=== PATIENT | female | born 1940 | race Caucasian/White ===

== ENCOUNTER 2023-12-10 11:06 | Emergency (ER) | payer OTHER, SELFPAY ==
[2023-12-10 11:16] VITALS: BP 141/81
[2023-12-10] MEDS: NSS 500 IV (12:08)
[2023-12-10 12:10] VITALS: BMI 30.1
[2023-12-10 12:42] LABS: % Basophils 0.1 % (0-2); % Eosinophils 0.1 % (0-6); % Immature Granulocytes 0.3 % (0-0.5); % Lymphocytes 8.3 % (20.5-51.1); % Monocytes 5.3 % (1.7-9.3); % Neutrophils 85.9 % (42.2-75.2); Absolute Monocytes 0.6 10^3/uL (0.1-0.6); Absolute Neutrophils 10.2 10^3/uL (1.4-6.5); Hematocrit 38.6 % (37.0-47.0); Hemoglobin 13.4 g/dL (12.0-16.0); Mean Corp Hgb Conc. 34.7 g/dL (33.0-37.0); Mean Corpuscular Hgb 30.2 pg (27.0-31.0); Mean Corpuscular Volume 86.9 fL (81.0-99.0); Mean Platelet Volume 11.3 fL (7.4-10.4); Nucleated Red Blood Cells % 0 %; Platelet Count 280 10^3/uL (130-400); Red Blood Cell Count 4.44 10^6/uL (4.20-5.40); Red Cell Dist. Width 12.5 % (11.5-14.5); White Blood Cell Count 11.8 10^3/uL (4.8-10.8)
--- NOTE | 2023-12-10 12:47 | ED.GENMED ---
History of Present Illness
General
Chief Complaint: Fainting/Passed Out
Source: patient
Exam Limitations: none
Time Seen by Provider: 12/10/23 11:47
Nursing documentation reviewed up to this point in time: agreed with
History of Present Illness
History of Present Illness:
pt is a 83 y/o F with h/o PAF on xarelto, htn, hld,
s/p multiple ablations
intolerant to cardizem/amio
so she is on tikosyn since last year
syas that she has been under a lot of stress recently, her was hospitalized and now is home and she is primary resident care manager
she got some n/v last week that resovled after 1 day but doesn't think she has slept well and she hasn't been hydrated
and this morning 3 am she had syncope event when she was feeling nauseated and then passed out backwards onto the tile and woke up and vomited
she has a lump back of head
has had some dehydratioan/nausea all day but no longer vomiting
some mild epigastric pain
no diarrhea, fever, chills, chest pain, shortness of breath
she called cardiology office and they told her to come in. she isn't sure if she is in Af ib
Past History
Past History
ED Past Medical History: Arrthythmia (Atrial fib), GERD, HTN, Hypercholesterolemia, NIDDM (Prediabetic), Hypothyroidism, Psychiatric (Anxiety) and Other (Shingles 2006, osteopenia, urinary incontinence, head trauma 2010)
ED Past Surgical History: Cardiac (Ablations x4) and Orthopedic (Laminectomy, Right knee replacement, Right THR, Leg surgery for MRSA)
Social History
Tobacco: Non-smoker
Alcohol: None
Drug: None
Personal:
Living: with family
Employment: Retired
Family History
Family History: Hypertension
Phy Exam
Physical Exam
Physical Exam:
GENERAL: Alert , in no apparent distress
HEAD: NCAT
slight tenderness posterior scalp
NECK: no midline tenderness, active ROM intact, no paraspinal muscle tenderness;
EYE: pupils equal and reactive, EOMs intact.
ENT: o/p clr, mmm. no hemotympanum
CARDIAC: irregularly irregular, no edema
LUNGS: Clear breath sounds bilaterally, no acute respiratory distress, no wheezes/rales/rhonchi
ABDOMEN: Soft, without focal tenderness, no r/g, no cvat
NEUROLOGICAL: Alert and oriented, no focal neuro deficits, CN intact, 5/5 strength, sensation intact
SKIN: Warm and dry,
MUSCULOSKELETAL: No edema, well perfused.
PSYCH: Normal and appropriate interaction.
Course
Orders/Labs/Results
Orders:
Orders
12/10/23 11:08
EKG [Electrocardiogram (*1)] Urgent
Reason for Study: Syncope
EKG- Treatment ONCE
12/10/23 11:58
CT Cervical Spine W/o Iv Contr Urgent
Comment:
Reason For Exam: syncope, fall backwards, hit head/neck
CT Head W/o Iv Contrast Urgent
Comment:
Reason For Exam: syncope on xarelto, hit back of head
CARDIOLOGY CONSULT Urgent
Consulting Provider: Michele Lockwood
Was physician already notified: Yes
0.9% Sodium Chloride 500 ml [Nss] 500 ml IV BOLUS
12/10/23 12:09
COVID-19 Antigen Urgent
Source: Nasal Swab
Complete Blood Count/With Diff Urgent
Comprehensive Metabolic Panel Urgent
Lipase Urgent
Magnesium Urgent
NT-proBNP Urgent
TSH Reflex To Free T4 Urgent
Troponin I Urgent
12/10/23 13:48
Electrocardiogram (*1) Urgent
Reason for Study: Atrial Fibrillation
EKG- Treatment ONCE
12/10/23 14:41
Acetaminophen [Tylenol] 650 mg PO NOW STA
Abnormal Lab Results
12/10/23
12:09
WBC 11.8 H 10^3/uL
(4.8-10.8)
MPV 11.3 H fL
(7.4-10.4)
Absolute Neuts (auto) 10.2 H 10^3/uL
(1.4-6.5)
Absolute Lymphs (auto) 1.0 L 10^3/uL
(1.2-3.4)
Neutrophils % 85.9 H %
(42.2-75.2)
Lymphocytes % 8.3 L %
(20.5-51.1)
Chloride 95 L mmol/L
(98-107)
BUN 22 H mg/dl
(7-17)
Glucose 119 H mg/dl
(70-99)
AST 52 H U/L
(14-36)
12/10/23 12:09
12/10/23 12:09
Vital Signs
Initial and Last Documented VS:
Initial Vital Signs
Temp Pulse Resp BP Pulse Ox
97.5 F 106 20 141/81 97
12/10/23 11:16 12/10/23 11:16 12/10/23 11:16 12/10/23 11:16 12/10/23 11:16
Last Documented Vital Signs
Temp Pulse Resp BP Pulse Ox
97.5 F 100 27 141/81 97
12/10/23 11:16 12/10/23 14:33 12/10/23 14:33 12/10/23 11:16 12/10/23 11:16
MDM/Problems Addressed
Differential Diagnosis Includes:
deydatino, vasovagal syncope, concussion, afib
MDM/Problems Addressed:
83 y/o F with afib s/p multiple ablasions, intolerant to amio, no response to cardizem, so she was put on tikosyn last year
syncopized 3 am while standing behind her husbands tyson; just prior she had nausea; she has been having some nausea/fatigue the past few days; but she is really stressed out taking care of her ; she never has felt palpitations but feels
dehydrated
had a LOC and is on xarelto with hematoma; so getting labs, ct
her EKG says sinus with some PVCs but on the monitor she looks pretty irregular and i dno't see p waves, pretty frequent pvcs; but she is not in afib
labs mild bun elevation, trop andb piano mover nomral, cxr clear, head ct neg
perhaps her syncope was vagal because she was nauseated;
or maybe she's dehydrated
but she says she has been hospitalized when she's in afib; her rate now is 90s-100s, she has no signs of chf; her bp is 140/60
but her EKG is not fib;
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
pt ambulated to bathroom after fluidsand feels better
*Critical Care Note
Total Time (30-74mins, 75-104mins- exclusive of procedures): Not Applicable
ED Attending Note
-
Portions of this chart may have been created with voice recognition software.� Occasional wrong word or��sound alike� substitutions may have occurred due to the inherent limitations of voice recognition software.
Discharge Plan
Departure
Patient Disposition: Home (Routine Discharge)
Date of Disposition: 12/10/23
Time of Disposition: 14:41
Patient with high blood pressure during this ER visit?: No
Condition: Fair
Covid-19: Negative COVID-19
Discharge Problem:
Syncope, vasovagal, Mild concussion, Nausea, Dehydration
Instructions: Vasovagal Response (DC), Concussion, Adult ED
Prescriptions:
No Action
paroxetine HCl 10 MG tablet
10 mg PO DAILY
atorvastatin 10 MG tablet
10 mg PO HS
timolol maleate 0.5 % Drops
1 drp BOTH EYES BID
amlodipine 2.5 MG tablet
2.5 mg PO DAILY Qty: 1 0RF
acetaminophen [Acetaminophen Pain Relief] 500 mg tablet
1,000 mg PO Q6H PRN (Reason: mild pain)
Rx Instructions:
DO NOT exceed >4000 mg daily.
Xarelto 20 MG tablet
20 mg PO QPM
levothyroxine 25 mcg Tablet
25 mcg PO DAILY
calcium
500 mg PO DAILY
multivitamin Tablet
1 tab PO DAILY
pantoprazole [Protonix] 40 mg tablet,delayed release (DR/EC)
40 mg PO BID
Patient Comments:
Patient states does not currently take medication
Rx Instructions:
Take twice a day post procedure for 30 days, then stop
dofetilide 125 mcg Capsule
125 mcg PO Q12 Qty: 60 11RF
Referrals:
Pati Castaneda CRNP [Family Provider] -
Activity Restrictions/Additional Instructions:
You probably had a vasovagal episode from dehydration and nausea causing you to drop your blood pressure and passed out. You also may have a minor concussion but your CAT scan was clear. There is no signs of trauma. Your COVID was negative. You
did seem slightly dehydrated and were given IV fluids and feel better. Take Tylenol as needed for your headache every 6 hours. You shoul brain rest, including limiting TV, phone, reading, computer use for the next couple of days just to help with
headaches that may occur after hitting your head. After that you can resume normal activities. You may want to just hold your dose of Xarelto today and resume tomorrow since you hit your head so hard.
You were not found to be in atrial fibrillation. Please follow-up with Dr. lockwood if you continue to have episodes of lightheadedness. Return to the ER for repeated episodes of passing out, dehydration as continuing, vomiting, fever,
Interventions
Interventions:
*Risk Screen - Suicide Last Done: 12/10/23 12:10
*General Assessment Last Done: 12/10/23 12:10
*Neglect/Abuse Screening Last Done: 12/10/23 12:10
ED- Fall Risk Assessment Last Done: 12/10/23 12:10
*ED COVID-19 Vaccine History Last Done: 12/10/23 12:10
*Nursing Disposition Last Done: 12/10/23 15:23
ED- Cardiac Assessment Last Done: 12/10/23 12:10
ED- Neurological Assessment Last Done: 12/10/23 12:10
Discharge Date and Time
Discharge Date/Time: 12/10/23 15:23
Print Language: FAROESE
[2023-12-10 12:54] LABS: COVID-19 Antigen Negative (Negative)
[2023-12-10 12:59] LABS: ALT (SGPT) 30 U/L (0-35); AST (SGOT) 52 U/L (14-36); Albumin 4.7 g/dl (3.5-5.0); Alkaline Phosphatase 76 U/L (38-126); Blood Urea Nitrogen 22 mg/dl (7-17); Calcium 9.8 mg/dl (8.4-10.2); Carbon Dioxide 26 mmol/L (22-30); Chloride 95 mmol/L (98-107); Estimated Creatinine Clearance 48 ml/min; Glucose 119 mg/dl (70-99); Lipase 285 U/L (23-300); Magnesium 1.6 mg/dl (1.6-2.3); Potassium 3.8 mmol/L (3.5-5.1); Sodium 135 mmol/L (135-145); Total Bilirubin 0.8 mg/dl (0.2-1.3); eGFR > 60.00
[2023-12-10 13:08] LABS: NT-proBNP 787 pg/ml; Troponin I < 0.012 ng/ml
[2023-12-10 13:29] LABS: TSH Reflex To Free T4 2.37 uIU/ml (0.47-4.68)
[2023-12-10] MEDS: TYLENOL 650 MG PO (14:47)
== END 2023-12-10 15:23 | disposition home or self-care (01) ==
LOC: EMR 11:06
PROVIDERS: Physician Assistant; CONSULT PHYSICIAN Internal Medicine Cardiovascular Disease; EMERGENCY PHYSICIAN Student in an Organized Health Care Education/Training Program; FAMILY PHYSICIAN Nurse Practitioner Adult Health
DX: R55 Syncope and collapse (principal); S06.0XAA Concussion with loss of consciousness status unknown, initial encounter; R11.0 Nausea; E86.0 Dehydration; W19.XXXA Unspecified fall, initial encounter; I10 Essential (primary) hypertension; I48.91 Unspecified atrial fibrillation; K21.9 Gastro-esophageal reflux disease without esophagitis; E78.00 Pure hypercholesterolemia, unspecified; E11.9 Type 2 diabetes mellitus without complications; E03.9 Hypothyroidism, unspecified; F41.9 Anxiety disorder, unspecified
CPT/HCPCS: 99284; 96360; 70450; 72125; 80053; 83690; 83735; 83880; 84443; 84484; 85025; 87811; 93005

== ENCOUNTER 2024-06-04 17:42 | Emergency (ER) | payer OTHER, SELFPAY ==
[2024-06-04 17:47] VITALS: BP 177/88
[2024-06-04 18:01] VITALS: BP 151/102
[2024-06-04 18:29] LABS: % Basophils 0.6 % (0-2); % Eosinophils 3.7 % (0-6); % Immature Granulocytes 0.1 % (0-0.5); % Lymphocytes 38.2 % (20.5-51.1); % Monocytes 10.8 % (1.7-9.3); % Neutrophils 46.6 % (42.2-75.2); Absolute Eosinophils 0.3 10^3/uL (0-0.7); Absolute Lymphocytes 2.7 10^3/uL (1.2-3.4); Absolute Monocytes 0.8 10^3/uL (0.1-0.6); Absolute Neutrophils 3.3 10^3/uL (1.4-6.5); Hemoglobin 11.8 g/dL (12.0-16.0); Mean Corp Hgb Conc. 33.7 g/dL (33.0-37.0); Mean Corpuscular Hgb 29.7 pg (27.0-31.0); Mean Corpuscular Volume 88.2 fL (81.0-99.0); Mean Platelet Volume 10.9 fL (7.4-10.4); Nucleated Red Blood Cells % 0 %; Platelet Count 246 10^3/uL (130-400); Red Blood Cell Count 3.97 10^6/uL (4.20-5.40); Red Cell Dist. Width 12.3 % (11.5-14.5); White Blood Cell Count 7.1 10^3/uL (4.8-10.8)
[2024-06-04 18:40] LABS: ALT (SGPT) 21 U/L (0-35); AST (SGOT) 36 U/L (14-36); Albumin 4.6 g/dl (3.5-5.0); Alkaline Phosphatase 76 U/L (38-126); Blood Urea Nitrogen 22 mg/dl (7-17); Calcium 9.4 mg/dl (8.4-10.2); Carbon Dioxide 24 mmol/L (22-30); Chloride 99 mmol/L (98-107); Glucose 111 mg/dl (70-99); Potassium 3.5 mmol/L (3.5-5.1); Sodium 135 mmol/L (135-145); Total Bilirubin 0.6 mg/dl (0.2-1.3); Total Protein 7.8 g/dl (6.3-8.2); eGFR > 60.00
[2024-06-04 18:52] LABS: Troponin I < 0.012 ng/ml
--- NOTE | 2024-06-04 19:12 | ED.GENMED ---
History of Present Illness
General
Chief Complaint: Heart Rate Problem
Time Seen by Provider: 06/04/24 18:23
History of Present Illness
History of Present Illness:
83-year-old female presents the emergency department for evaluation of possible A-fib. States she feels somewhat jittery and lightheaded for the past 2 to 3 days. She is quite vague about the details of her symptoms. She is able to ambulate
without difficulty. Denies chest pain, palpitations, or shortness of breath. She is on dofetilide as well as Xarelto for management of her paroxysmal A-fib, has previously undergone cardioversion as well as ablation. Denies any recent illnesses
or medication changes
Past History
Past History
ED Past Medical History: Arrthythmia (Atrial fib), GERD, HTN, Hypercholesterolemia, NIDDM (Prediabetic), Hypothyroidism, Psychiatric (Anxiety) and Other (Shingles 2006, osteopenia, urinary incontinence, head trauma 2010)
ED Past Surgical History: Cardiac (Ablations x4) and Orthopedic (Laminectomy, Right knee replacement, Right THR, Leg surgery for MRSA)
Social History
Tobacco: Non-smoker
Alcohol: None
Drug: None
Personal:
Living: with family
Employment: Retired
Family History
Family History: Hypertension
Review of Systems
Review of Systems
Allergies reviewed?: Yes
All Other Systems: ROS reviewed and negative except as documented in HPI and ROS
Phy Exam
Physical Exam
Physical Exam:
GEN: Well appearing, NAD, WDWN
HEENT: Oral mucosa moist, no scleral icterus
Cardiac: Irregular rhythm, no murmur
Lung: No respiratory distress, no tachypnea, lungs clear to auscultation bilaterally
MSK: No gross deformity or injuries
Skin: Good color, no pallor or jaundice, no rashes
Neuro: AO x3, moves all extremities freely
Psych: Calm, cooperative
Course
Orders/Labs/Results
Orders:
Orders
06/04/24 17:42
Electrocardiogram (*1) Urgent
Reason for Study: Atrial Fibrillation
06/04/24 17:43
EKG- Treatment ONCE
06/04/24 18:23
Complete Blood Count/With Diff Urgent
Comprehensive Metabolic Panel Urgent
Troponin I Urgent
06/04/24 18:36
Electrocardiogram (*1) Urgent
Reason for Study: Abnormal EKG
EKG- Treatment ONCE
Abnormal Lab Results
06/04/24
18:23
RBC 3.97 L 10^6/uL
(4.20-5.40)
Hgb 11.8 L g/dL
(12.0-16.0)
Hct 35.0 L %
(37.0-47.0)
MPV 10.9 H fL
(7.4-10.4)
Absolute Monos (auto) 0.8 H 10^3/uL
(0.1-0.6)
Monocytes % 10.8 H %
(1.7-9.3)
BUN 22 H mg/dl
(7-17)
Glucose 111 H mg/dl
(70-99)
06/04/24 18:23
06/04/24 18:23
Vital Signs
Initial and Last Documented VS:
Initial Vital Signs
Temp Pulse Resp BP Pulse Ox
98.4 F 91 13 177/88 99
06/04/24 17:47 06/04/24 17:47 06/04/24 17:47 06/04/24 17:47 06/04/24 17:47
Last Documented Vital Signs
Temp Pulse Resp BP Pulse Ox
98.4 F 90 24 160/90 96
06/04/24 17:47 06/04/24 18:30 06/04/24 18:30 06/04/24 19:18 06/04/24 19:18
MDM/Problems Addressed
MDM/Problems Addressed:
Labs are unremarkable. EKG shows sinus rhythm with frequent ectopy, I do not see evidence for A-fib on telemetry. Encouraged her to follow-up with her PCP as if the symptoms are due to cardiac ectopy she may benefit from addition of beta-silvia
*Critical Care Note
Total Time (30-74mins, 75-104mins- exclusive of procedures): Not Applicable
ED Attending Note
-
Portions of this chart may have been created with voice recognition software.� Occasional wrong word or��sound alike� substitutions may have occurred due to the inherent limitations of voice recognition software.
Discharge Plan
Departure
Patient Disposition: Home (Routine Discharge)
Date of Disposition: 06/04/24
Time of Disposition: 19:12
Patient with high blood pressure during this ER visit?: No
Discharge Problem:
Atrial contractions, premature
Instructions: Palpitations (DC)
Prescriptions:
No Action
atorvastatin 10 MG tablet
10 mg PO QPM
amlodipine 2.5 MG tablet
2.5 mg PO DAILY Qty: 1 0RF
Xarelto 20 MG tablet
20 mg PO QPM
levothyroxine 25 mcg Tablet
25 mcg PO DAILY
acetaminophen 500 mg Tablet
500 mg PO Q6HPRN PRN (Reason: MILD PAIN)
calcium carbonate [Calcium 500] 500 mg calcium (1,250 mg) Tablet
500 mg PO DAILY
dofetilide 125 mcg capsule
125 mcg PO BID@0800,2000
Referrals:
Pati Castaneda CRNP [Family Provider] -
Activity Restrictions/Additional Instructions:
Discussed the premature contractions with your primary care physician or washer blanket as medication adjustments may be necessary
Interventions
Interventions:
*Risk Screen - Suicide Last Done: 06/04/24 17:47
*General Assessment Last Done: 06/04/24 18:24
*Neglect/Abuse Screening Last Done: 06/04/24 18:24
*Nursing Disposition Last Done: 06/04/24 19:42
ED- Cardiac Assessment Last Done: 06/04/24 18:30
ED- Pulmonary Assessment Last Done: 06/04/24 18:30
Discharge Date and Time
Discharge Date/Time: 06/04/24 19:43
Print Language: AMHARIC
[2024-06-04 19:18] VITALS: BP 160/90
== END 2024-06-04 19:43 | disposition home or self-care (01) ==
LOC: EMR 17:42
PROVIDERS: Emergency Medicine; EMERGENCY PHYSICIAN Emergency Medicine; FAMILY PHYSICIAN Nurse Practitioner Adult Health
DX: I49.1 Atrial premature depolarization (principal); I48.91 Unspecified atrial fibrillation; K21.9 Gastro-esophageal reflux disease without esophagitis; E78.00 Pure hypercholesterolemia, unspecified; E03.9 Hypothyroidism, unspecified; E11.9 Type 2 diabetes mellitus without complications; I10 Essential (primary) hypertension; Z82.49 Family history of ischemic heart disease and other diseases of the circulatory system; Z96.651 Presence of right artificial knee joint
CPT/HCPCS: 99283; 80053; 84484; 85025; 93005

== ENCOUNTER → 2024-06-05 14:59 | Outpatient (REF) | payer OTHER, SELFPAY | LOC: HWWDC 14:59 | PROVIDERS: ATTENDING PHYSICIAN Nurse Practitioner Adult Health; REFERRING PHYSICIAN Internal Medicine Cardiovascular Disease | DX: Z12.31 Encounter for screening mammogram for malignant neoplasm of breast (principal); R80.9 Proteinuria, unspecified; N18.31 Chronic kidney disease, stage 3a; N28.1 Cyst of kidney, acquired | CPT/HCPCS: 76770; 77063; 77067 ==